=== PATIENT | male | born 1950 | race Caucasian/White ===

== ENCOUNTER 2016-05-07 08:34 | Inpatient (IN) | payer MEDICARE, OTHER ==
[~2016-05-07] VITALS: Ht 157.4 cm; Wt 108.5 kg
[2016-05-07] VITALS (12 sets, daily range): BP systolic 122–213; BP diastolic 76–137
--- NOTE | ~2016-05-07 | PR ---
[place], [place] PROGRESS NOTE NAME: SHAD CHISHOLM UNIT #: [id number] ROOM: 521 DOCTOR: KLARISSA LORENZO MD BIRTHDATE: [birth year] DOS: 05/11/2016 PULMONARY PROGRESS NOTE SUBJECTIVE: He has been transferred to medical floor at this time, sitting on the chair. He was not requiring any oxygen supplementation. NG tube has been previously removed. The patient stated he had been ordered clear liquids that patient to be used today. He denies any coughing or any sputum expectoration. OBJECTIVE: VITAL SIGNS: For the patient, which has been recorded showed the temperature noted normal, respiratory rate 20, heart rate of 85, blood pressure 144/70. The pulse oxygen saturation for the patient recorded on 2 liters nasal cannula previously as 94% saturation. HEENT: Examination shows head was atraumatic. Eyes nonicterus. NECK: Supple. CARDIOVASCULAR SYSTEM: S1, S2 is audible. LUNGS: For the patient was noted without any wheezing or crackles. Breaths are noted decreased in the lower portion of the lungs. ABDOMEN: Soft, status post surgery. Bowel sounds present. LABORATORY DATA: CBC of the patient, WBC count 3.3, hemoglobin 11.9, hematocrit 35.7, platelet count was normal. The BMP of the patient noted normal BUN and creatinine. IMPRESSION: 1. The patient with acute hypoxic respiratory failure, which has been improving progressively with basilar areas of atelectasis. 2. Abdominal ventral hernia of the patient incarceration, status post repair. 3. Chronic obesity. PLAN OF TREATMENT: The patient has been responding to treatment progressively with the improvement in the oxygenation. He was advised about continuing current treatment with bronchodilators, incentive spirometry, and flutter valve. Other usual care. Supportive therapy, plan of management and treatments. [place], [place] PROGRESS NOTE NAME: SHAD CHISHOLM UNIT #: [id number] ROOM: 521 DOCTOR: KLARISSA LORENZO MD BIRTHDATE: [birth year] KLARISSA ARBOLEDA MD CM:PNTRANS [phone] KLARISSA BILL MD 05/12/16 1219 interface
--- NOTE | ~2016-05-07 | PR ---
[place], [place] PROGRESS NOTE NAME: SHAD CHISHOLM UNIT #: [id number] ROOM: 521 DOCTOR: NKECHI BILL MD,KLARISSA BIRTHDATE: [birth year] DOS: 05/14/2016 SUBJECTIVE: The patient seen and examined on 05/14/2016. He has been currently ambulating, being assessed, possibly oxygen supplementation needed at home settings. He denies any symptoms of chest pain or any abdominal pain. OBJECTIVE: VITAL SIGNS: For the patient, which has been recorded shows the temperature recorded as normal, respiratory rate of 20, heart rate 79, blood pressure 146/64. HEENT: No new change. CARDIOVASCULAR: S1, S2 audible. LUNGS: Noted without any wheezing or crackles. ABDOMEN: Soft, nontender. IMPRESSION: 1. The patient with stable respiratory status was noted at the present time with the resolution of acute hypoxic respiratory failure. 2. Chronic obesity. 3. Status post surgery for the incarcerated ventral hernia. PLAN OF TREATMENT: No changes in the plan and management at this time. The patient does not qualify for oxygen supplementation. The walk test for the patient was done, which was noted without any oxygen desaturation. KLARISSA ARBOLEDA MD CM:PNTRANS [phone] KLARISSA BILL MD 05/15/16 0055 interface
--- NOTE | ~2016-05-07 | PR ---
[place], [place] PROGRESS NOTE NAME: SHAD CHISHOLM UNIT #: [id number] ROOM: 521 DOCTOR: NKECHI BILL MD,KLARISSA BIRTHDATE: [birth year] DOS: 05/12/2016 PULMONARY PROGRESS NOTE SUBJECTIVE: He has been noted comfortable at this time. The patient has been ambulating, continued on clear liquids. to further advance the diet by the surgery staff. He has been currently getting oxygen supplementation 2 L nasal cannula. OBJECTIVE: VITAL SIGNS: Shows a normal temperature, respiratory rate 20, heart rate of 83. The blood pressure 128/70. Pulse oxygen saturation of the patient was noted on 2 L was 95% saturation. HEENT: Examination shows chronic obesity. NECK: Supple. CARDIOVASCULAR SYSTEM: S1, S2 audible. LUNGS: Noted without any wheezing or crackles. ABDOMEN: Soft, nontender. LABORATORY DATA: BMP of the patient, potassium 3.4, otherwise normal. CBC of the patient, mild anemia, otherwise normal CBC. IMPRESSION: 1. Stable respiratory status with resolving acute hypoxia and respiratory failure. 2. Area of basilar atelectasis post-surgery, which is clinically improving. PLAN OF TREATMENT: No change in plan of management at this time. Continue current therapy and plan of management and postsurgical care. KLARISSA ARBOLEDA MD CM:PNTRANS [id number] KLARISSA BILL MD 05/13/16 0426 interface
--- NOTE | ~2016-05-07 | O ---
[place], [place] OPERATIVE NOTE [id number] UNIT #: [id number] ROOM: [place] [address] DOCTOR: QUINTIN REAVES MD BIRTHDATE: [birth year] DOS: 05/07/2016 PREOPERATIVE DIAGNOSIS: Incarcerated ventral hernia. POSTOPERATIVE DIAGNOSIS: Incarcerated ventral hernia. PROCEDURE: Repair of incarcerated ventral hernia. SURGEON: Quintin Reaves MD [employer] EVIDENCE TECHNICIAN: MS3. ANESTHESIA: General with endotracheal intubation. INDICATIONS: This is a 65-year-old gentleman who came into the Emergency Room with an incarcerated ventral hernia. It was decided to take the patient to the operating room for the above-mentioned procedure. The procedure and its complications explained to him and his in detail preoperatively. Complications that were discussed included but were not limited to bleeding, infection, hematoma/seroma/abscess formation, prolonged postoperative pain, damage to underlying vital structures and recurrence agreed to proceed. DESCRIPTION OF PROCEDURE: After identifying the patient, the patient was brought to the operating suite and laid in the supine position. After induction of general anesthesia, timeout procedure was called, and an NG-tube was placed by the anesthesia team. The parts were then painted and draped in the usual sterile fashion. The previous midline incision that was made for the previous 2 hernia repairs was used to enter the abdomen. The scar was excised in its entirety and the subcutaneous tissue was incised very carefully. The hernial sac was identified and from the surrounding scar tissue and it was opened. Multiple adhesions between the omentum and the edges of the scar as well as the small and large bowel were identified. These were meticulously taken down on all directions. A transition point in the region of the cecum/proximal colon was found and this was treated away from the hernial sac with blunt and sharp dissection. After complete mobilization of the bowel was obtained, the edges of the fascia were freshened, and at this point, it was decided to proceed with primary closure. This was done after two least incisions were made on the fascia on either side. The closure was first done with the help of #2 Ethilon in an interrupted fashion and then this was further reinforced with the help of looped PDS in a running fashion. Thereafter, hemostasis was achieved with the help of electrocautery and a 15-[place] round PRIYA was placed in the subcutaneous tissue. Thereafter, the edges of the skin were approximated with the help of gaviota and a dressing was placed. The abdominal binder was placed as well. The patient tolerated the procedure well. He was taken to the recovery room in a stable fashion intubated, on venilator . Dr. Quintin Reaves, the attending surgeon, was present throughout the operating case. Blood loss was approximately 200 mL. Specimens that were sent for histopathological diagnosis included omentum and mesh from the previous surgery. [place], [place] OPERATIVE NOTE NAME: SHAD CHISHOLM UNIT #: [id number] ROOM: [place] [address] DOCTOR: QUINTIN REAVES MD BIRTHDATE: [birth year] Quintin Reaves MD CM:OPRECORD:OPERATIVE NOTE [id number] QUINTIN REAVES MD 05/09/16 0617 interface
--- NOTE | ~2016-05-07 | PR ---
[place], [place] PROGRESS NOTE NAME: SHAD CHISHOLM UNIT #: [id number] ROOM: 521 DOCTOR: KLARISSA LORENZO MD BIRTHDATE: [birth year] DOS: 05/10/2016 PULMONARY FOLLOWUP NOTE SUBJECTIVE: He was seen and examined on 05/10/2016 in the Intensive Care Unit. He had been comfortably sitting on the chair. The NG tube has been removed. The patient continues to use the ice chips. He has not been noted with any abdominal pain, shortness of breath, coughing or sputum expectoration. OBJECTIVE: VITAL SIGNS: For the patient, which has been recorded showed the temperature noted as normal, respiratory rate 20, heart rate 93, blood pressure 162/89. HEENT: Examination shows head was atraumatic. Eyes nonicterus. NECK: Supple. CARDIOVASCULAR: S1, S2 audible. LUNGS: Noted without any wheezing or crackles at the present time. ABDOMEN: Soft, status post surgery. EXTREMITIES: Showed no edema, clubbing or cyanosis. LABORATORY DATA: CBC of the patient that was done this morning showed WBC count 3.4, hemoglobin 13.1, hematocrit 39.7 with normal platelet count. The BMP of the patient shows glucose 102, BUN and creatinine were normal, potassium 3.1. Chest x-ray of the patient that was done, 2-view was noted with basilar areas of atelectasis without any acute abnormalities. IMPRESSION: 1. The patient with improving acute hypoxic respiratory failure with basilar area of atelectasis because of some mucus impaction of the airways. 2. Status post abdominal ventral hernia repair with incarceration. 3. Obesity. PLAN OF TREATMENT: Continue incentive spirometry, use of flutter valve and other conservative treatment. Continue all previous medical therapy, plan of management and other care and therapies. Supportive care. All his usual medical management as in progress. [place], [place] PROGRESS NOTE NAME: SHAD CHISHOLM UNIT #: [id number] ROOM: 521 DOCTOR: KLARISSA LORENZO MD BIRTHDATE: [birth year] KLARISSA ARBOLEDA MD CM:PNTRANS [phone] KLARISSA BILL MD 05/11/16 0152 interface
--- NOTE | ~2016-05-07 | PR ---
[place], [place] PROGRESS NOTE NAME: SHAD CHISHOLM UNIT #: [id number] ROOM: [place] [address] DOCTOR: KLARISSA LORENZO MD BIRTHDATE: [birth year] DOS: 05/09/2016 PULMONARY FOLLOWUP SUBJECTIVE: The patient was seen and examined on 05/09/2016. He had been successfully liberated from mechanical ventilator yesterday. This morning seen sitting on the chair. The NG tube remains in place which has been placed to the suction. The patient has been noted without any distress. The oxygen supplementation at this time used by the patient with the nasal cannula, saturating very well. He has not been noted with any hemodynamic instability. OBJECTIVE: VITAL SIGNS: For the patient, which have been recorded showed normal temperature, respiratory rate 20, heart rate of 82, blood pressure 168/88. The pulse oxygen saturation of the patient recorded on 4 L nasal cannula 95% saturation. HEENT: Showed no new change. NECK: Supple. CARDIOVASCULAR SYSTEM: S1, S2 is audible. LUNGS: Noted with scattered occasional crackles, no wheezing. ABDOMEN: Soft, nontender. Status post surgery. LABORATORY DATA: CBC today: WBC count 2.6, otherwise CBC grossly normal. The BMP for the patient was noted as potassium 3.0, otherwise normal. IMPRESSION: 1. The patient with acute postoperative hypoxic respiratory failure with gradual improvement. The patient continues with respiratory status. Oxygen requirement has been progressively decreased. 2. Status post ventral hernia repair and incarceration. PLAN OF TREATMENT: Continue the patient's current plan of management. The patient is improving. A continuation of incentive spirometry, oxygen supplementation, bronchodilators, used for this patient help clear up secretions. Chest x-ray of the patient to be obtained tomorrow morning to assess the underlying pulmonary status. Usual care. Other supportive plan of therapy. [place], [place] PROGRESS NOTE NAME: SHAD CHISHOLM UNIT #: [id number] ROOM: [place] [address] DOCTOR: KLARISSA LORENZO MD BIRTHDATE: [birth year] KLARISSA ARBOLEDA MD CM:PNTRANS [phone] KLARISSA BILL MD 05/10/16 1436 interface
--- NOTE | ~2016-05-07 | PR ---
[place], [place] PROGRESS NOTE NAME: SHAD CHISHOLM UNIT #: [id number] ROOM: 521 DOCTOR: NKECHI BILL MD,KLARISSA BIRTHDATE: [birth year] DOS: 05/15/2016 PULMONARY PROGRESS NOTE SUBJECTIVE: He was seen and examined on 05/15/2016. He has been ambulating, does not require any oxygen supplementation. Denies symptoms of chest pain, coughing, sputum expectoration. OBJECTIVE: VITAL SIGNS: Normal temperature, respiratory rate 20, heart rate 75, blood pressure 151/76. Intake is 1200, the output was not recorded. Pulse oxygen saturation on room air 98% saturation. HEENT: Examination shows chronic obesity. NECK: Supple. CARDIOVASCULAR SYSTEM: S1, S2 is audible. LUNGS: For the patient noted without any wheeze or crackles at present time. ABDOMEN: Soft, obese, nontender. IMPRESSION: 1. Resolved acute hypoxic respiratory failure, improving basilar area of atelectasis postoperatively. 2. Status post incarcerated ventral hernia repair. PLAN OF TREATMENT: No changes from the pulmonary standpoint, the patient could be continued on current plan of therapy as in progress without any changes. Continue usual medical management, plan of care, and supportive care. Usual treatments. KLARISSA ARBOLEDA MD CM:PNTRANS [phone] KLARISSA BILL MD 05/16/16 0047 interface
--- NOTE | ~2016-05-07 | PR ---
[place], [place] PROGRESS NOTE [facility]: [id number] UNIT #: [id number] ROOM: 521 DOCTOR: NKECHI BILL MD,KLARISSA BIRTHDATE: [birth year] DOS: 05/13/2016 SUBJECTIVE: The patient was seen and examined on 05/13/2016. He has been started on solid diet, which seemed to be tolerated in general. The patient denies any symptoms of shortness of breath, ambulating intermittently. There were no symptoms of chest pain. OBJECTIVE: VITAL SIGNS: Normal temperature, respiratory rate 18, heart rate 86, blood pressure 146/90. The pulse oxygen saturation on room air 94% saturation. HEENT: Examination shows. NECK: Supple. CARDIOVASCULAR: S1, S2 audible. LUNGS: Noted without any wheezing or crackles. ABDOMEN: Soft, obese, status post surgery. Bowel sounds present. IMPRESSION: Stable respiratory status or acute hypoxic respiratory failure, a small area of atelectasis in the left lower lobe. PLAN OF TREATMENT: No changes in the plan of management, continuation of current therapy, plan of management as in progress without any changes. Continue usual care. Supportive care, plan of management. Usual care. KLARISSA ARBOLEDA MD CM:PNTRANS [phone] KLARISSA BILL MD 05/14/16 0349 interface
--- NOTE | ~2016-05-07 | CON ---
[place], [place] REPORT OF CONSULTATION NAME: SHAD CHISHOLM UNIT #: [id number] ROOM: [place] [address] DOCTOR: KLARISSA LORENZO MD BIRTHDATE: [birth year] DOS: 05/08/2016 Consultation was done for the patient for the assessment of acute respiratory failure with current mechanical ventilatory support. HISTORY OF PRESENT ILLNESS: This is a 65-year-old white male who has been admitted to the hospital. The patient presented to the Emergency Room and admitted on 05/07/2016. The patient unable to give me any history. All the history has been obtained from the review of the current consultation documentation by the other physicians records. He has been noted with past history of ventral abdominal hernias in the past with history of rheumatoid arthritis and essential hypertension. The patient presented to the hospital. The patient developed acute pain, which is described burning initially in the mid abdomen, later on noted burning and generalization of the pain. Pain has been present for the patient about one month ago, subsided for few days and then reoccurred the pain. The pain has been noted progressive worsening. The pain was later associated with several episodes of the emesis over the weekend. The patient has been noted symptoms of nausea. There were no symptoms of hematemesis, melena, or hematochezia described. The patient was taking the clear liquids. He was assessed in the Emergency Room later and diagnosis of incarcerated ventral abdominal hernia was established. The patient underwent surgical intervention for the patient for removal of the mesh from the abdomen as well as the correction of the incarcerated abdominal hernia. The patient has been currently noted on mechanical ventilation. He has been noted to be awake and alert. The oxygen requirement of the patient has been decreased. The patient noted 30% oxygen supplementation. REVIEW OF SYSTEMS: Could not be completed since the patient is intubated and noted on mechanical ventilation. PAST MEDICAL HISTORY: Was described as; 1. Hypertension . 2. Gout. 3. BPH. 4. Abdominal ventral hernia. 5. Chronic obesity. 6. History of rheumatoid arthritis. PAST SURGICAL HISTORY: Was described as; 1. History of right hand. 2. Past abdominal ventral hernia repair. 3. Surgery for the fingers attached for the patient after an accident of the hand. SOCIAL HISTORY: The patient has been noted past tobacco use, unknown quantity and duration. There was no history of illicit drug use. History of social alcohol use was noted. FAMILY HISTORY: The patient was described as father at 80 years old, complication of congestive heart failure. Mother at the age of 80 years [place], [place] REPORT OF CONSULTATION NAME: SHAD CHISHOLM UNIT #: [id number] ROOM: [place] [address] DOCTOR: KLARISSA LORENZO MD BIRTHDATE: [birth year] old from an old age. HOME MEDICATIONS: Used by the patient reported as use of Norvasc, aspirin, vitamin D, multivitamin, hydrochlorothiazide and terazosin. DRUG ALLERGIES: Noted with no known drug allergies. PHYSICAL EXAMINATION: GENERAL: A 65-year-old white male who has been currently noted to be awake on the mechanical ventilator at this time intubated orally. Height of the patient noted 5 feet 2 inches, weight of 225 pounds, BMI 41.2. VITAL SIGNS: For the patient reported as a normal temperature since the last 24 hours. Respiratory rate between 12-17, heart rate highest of 139 and lowest 85. The blood pressure noted 230/137 yesterday and current blood pressure noted 144/75. Pulse oxygen saturation recorded 97% on 30% oxygen. Oxygen saturation 89% for this patient on admission. Intake for the patient noted as 1880 mL, output was 1150 mL that include the output of the drain from the abdomen 105 mL, 20 mL of NG tube, output at 800 mL of urine. HEENT: Otherwise noted, head was atraumatic. EYES: Nonicterus. NECK: Supple. CARDIOVASCULAR SYSTEM: S1, S2 audible. LUNGS: Shows [id number] decreased breath sounds were noted without any wheezing or crackles at this time. ABDOMEN: Abdomen site of surgery soft with current obesity. CENTRAL NERVOUS SYSTEM: The patient unable to assess, but the patient had been noted movement of the upper and lower extremities at his own will. SKIN: Showed no lesions or rashes. MUSCULOSKELETAL SYMPTOMS: The patient does not show any obvious deformities of the muscles or skeleton. LABORATORY DATA: CBC for this patient that was done yesterday of the patient on admission with a WBC count of 10.1. Hemoglobin, hematocrit, platelet count were normal. Lactic acid 2.3 on admission, later on followup was 2.0 from yesterday. CMP of the patient of 05/07/2016, on admission noted normal except potassium 3.0. Arterial blood gas, which were done for the patient post-surgery pH of 7.34, pCO2 of 51.8, pO2 of 101 on 60% oxygen. Arterial blood gas this morning, pH of 7.40, pCO2 of 43, pO2 of 76.6 with correction after modification of mechanical ventilation, which was done last night. The lab data review of radiology. CT scan of the abdomen and pelvis that was done on 05/07/2016, in the Emergency Room were noted small bowel obstruction secondary to incarcerated anterior abdominal wall hernia. There were no wall thickening described. Chest x-ray of the patient that was done post-intubation of the patient shows endotracheal tube in place without any acute pulmonary infiltration or other abnormalities. IMPRESSION: 1. The patient with acute hypoxic respiratory failure with current surgery, postoperative hypoxic respiratory failure secondary to non-thoracic surgery. 2. The patient with chronic morbid obesity with the suspicion of obstructive [place], [place] REPORT OF CONSULTATION NAME: SHAD CHISHOLM UNIT #: [id number] ROOM: [place] [address] DOCTOR: NKECHI BILL MD,[facility] BIRTHDATE: [birth year] sleep apnea disorder. 3. Past history of tobacco use with suspicion of chronic obstructive pulmonary disease. There was no formal diagnosis made. At this time, the patient does not have any acute exacerbation. 4. Hypercapnia, multifactorial secondary to medication including use of anesthetic agents as well as central depression of the patient with use of the narcotic medication for postoperative treatment as well. 5. Status post repair of the incarcerated abdominal ventral hernia for this patient successfully for this current hospitalization as a removal of the mesh for this patient. PLAN OF TREATMENT: Sedation will be completely discontinued at this time. The patient has been noted to gradually improve the wakefulness, findings to be noted fully awake and alert. He will be started on CPAP of 5 and pressure support of 10. After discontinuation of the Diprivan few minutes later, the patient was only getting a tidal volume of about 200 to 250 mL with a respiratory rate of 30. The BiPAP for this patient will be started in the next 30 minutes to 1 hour and that will be continued if tolerated for possibility of consideration of liberation of mechanical ventilation after that. Bronchodilator will be given as needed for the clearing up of secretions from the endobronchial tree. Other supportive therapy, plan of management. Continue pain management. Supportive care therapy, plan of management. Surgical followup the patient will be continued, the patient with current surgery for the correction of the ventral hernia repair. Usual treatment other than the plan of care. Total time of Pulmonary critical care evaluation and management was 35 minutes. KLARISSA ARBOLEDA MD CM:CONSTR:REPORT OF CONSULTATION 1224 05/09/16 0355 interface
[2016-05-07 09:56] LABS: BASO % 0.2 % (0.0-1.0); EOS % 0.1 % (1.0-4.0); HEMATOCRIT 44.7 % (42.0-52.0); HEMOGLOBIN 15.7 g/dl (14.0-18.0); LYMPH # 0.8 10*3/uL (1.3-4.4); LYMPH % 7.5 % (27.0-41.0); MEAN CELL VOLUME 86.6 fl (80.0-94.0); MEAN CORPUSCULAR HGB 30.4 pg (27.0-31.0); MEAN CORPUSCULAR HGB CONC 35.1 g/dl (33.0-37.0); MEAN PLATELET VOLUME 9.8 fl (9.6-12.3); MONO # 0.6 10*3/uL (0.1-1.0); MONO % 6.4 % (3.0-9.0); NEUT # 8.6 10*3/uL (2.3-7.9); NEUT % 85.5 % (47.0-73.0); PLATELET COUNT AUTOMATED 278 10*3/uL (130-400); RED BLOOD COUNT 5.16 10*6/uL (4.50-5.90); RED CELL DISTRI WIDTH 11.8 % (0-14.5); WHITE BLOOD COUNT 10.1 10*3/uL (4.8-10.8)
[2016-05-07 10:11] LABS: ALBUMIN 3.5 gm/dl (3.1-4.5); ALKALINE PHOSPHATASE 77 U/L (45-117); BUN 19 mg/dl (7-24); CARBON DIOXIDE 25 mmol/L (21-32); CHLORIDE 101 mmol/L (98-107); EST GLOM FILT AFRICAN AMERICAN > 60 ml/min; GLUCOSE 116 mg/dL (65-99); SGOT/AST 19 IU/L (3-35); SGPT/ALT 19 U/L (12-78); SODIUM 137 mmol/L (136-145); TOTAL PROTEIN 7.7 gm/dL (6.4-8.2)
[2016-05-07] MEDS ORDERED: HYDROCHLOROTHIA25 M1 PO (10:14)
[2016-05-07] MEDS ORDERED: TERAZOSIN HCL5 M1 PO (10:14)
[2016-05-07] MEDS ORDERED: VITAMIN D-32000 UNIT PO (10:15)
[2016-05-07] MEDS ORDERED: ASPIRIN CHEWABL81 MG PO (10:15)
[2016-05-07] MEDS ORDERED: ONE-A-DAY VIT200 MC2 PO (10:15)
[2016-05-07] MEDS ORDERED: AMLODIPINE BESYL5 MG PO (10:16)
[2016-05-07 11:44] LABS: BILIRUBIN NEGATIVE (NEGATIVE); BLOOD NEGATIVE (NEGATIVE); CLARITY CLEAR (CLEAR); COLOR YELLOW (YELLOW); GLUCOSE NEGATIVE (NEGATIVE); KETONE NEGATIVE (NEGATIVE); LEUKO ESTERASE NEGATIVE (NEGATIVE); NITRITE NEGATIVE (NEGATIVE); PH 7.5 (5.0-9.0); PROTEIN TRACE (NEGATIVE); SPECIFIC GRAVITY <= 1.005 (1.005-1.030)
[2016-05-07 11:49] LABS: WBC 0-2 wbc/hpf (0-5)
[2016-05-07 11:50] LABS: RBC 0-2 rbc/hpf (0-2); URINE REFLEX COMMENT NO (NO)
[2016-05-07 11:53] LABS: LA>2 REFLEX 2 HR DRAW NOW
[2016-05-07 21:42] LABS: ABG BASE EXCESS 1.7 mmol/L (-2.0-2.0); ABG CO2 CONTENT 29.4 mmol/L (23-27); ABG HCO3 27.8 mmol/l (22-26); ABG TEMPERATURE 98.7 F (98.0-99.0); ARTERIAL BLOOD GAS PH 7.349 (7.35-7.45)
[2016-05-08] VITALS (10 sets, daily range): BP systolic 120–170; BP diastolic 72–92
[2016-05-08 05:20] LABS: ABG BASE EXCESS 2.1 mmol/L (-2.0-2.0); ABG CO2 CONTENT 28.1 mmol/L (23-27); ABG HCO3 26.7 mmol/l (22-26); ABG TEMPERATURE 98.5 F (98.0-99.0); ARTERIAL BLOOD GAS PH 7.404 (7.35-7.45); ARTERIAL BLOOD GAS PO2 76.7 mmHg (80-90)
[2016-05-08 06:20] LABS: BASO % 0.3 % (0.0-1.0); EOS # 0.1 10*3/uL (0.0-0.4); EOS % 1.2 % (1.0-4.0); LYMPH # 0.6 10*3/uL (1.3-4.4); LYMPH % 7.7 % (27.0-41.0); MEAN CORPUSCULAR HGB 30.5 pg (27.0-31.0); MEAN CORPUSCULAR HGB CONC 33.4 g/dl (33.0-37.0); MONO # 0.7 10*3/uL (0.1-1.0); MONO % 9.4 % (3.0-9.0); NEUT # 6.2 10*3/uL (2.3-7.9); NEUT % 81.1 % (47.0-73.0); PLATELET COUNT AUTOMATED 208 10*3/uL (130-400); RED BLOOD COUNT 4.49 10*6/uL (4.50-5.90); RED CELL DISTRI WIDTH 12.6 % (0-14.5); WHITE BLOOD COUNT 7.7 10*3/uL (4.8-10.8)
[2016-05-08 06:29] LABS: HEMOGLOBIN 13.7 g/dl (14.0-18.0); MEAN CELL VOLUME 91.3 fl (80.0-94.0)
[2016-05-08 06:51] LABS: ALBUMIN 2.6 gm/dl (3.1-4.5); ALKALINE PHOSPHATASE 57 U/L (45-117); BILIRUBIN, TOTAL 1.1 mg/dl (0.2-1.0); BUN 18 mg/dl (7-24); CARBON DIOXIDE 27 mmol/L (21-32); CHLORIDE 107 mmol/L (98-107); CHOLESTEROL 130 mg/dL (<200); EST GLOM FILT AFRICAN AMERICAN > 60 ml/min; FREE T4 1.61 ng/dl (0.76-1.46); GLUCOSE 109 mg/dL (65-99); HDL CHOLESTEROL 37 mg/dl (40-60); LDL CHOLESTEROL 64 mg/dL (9-159); MAGNESIUM 2.1 mg/dL (1.5-2.1); POTASSIUM 3.5 mmol/L (3.5-5.1); SGOT/AST 20 IU/L (3-35); SGPT/ALT 16 U/L (12-78); SODIUM 143 mmol/L (136-145); THYROID STIM HORMONE (HS) 0.487 uIU/ml (0.358-4.75); TOTAL PROTEIN 5.9 gm/dL (6.4-8.2); TRIGLYCERIDES 144 mg/dl (<150); VLDL CHOLESTEROL 29 mg/dL (6-40)
[2016-05-08 06:58] LABS: HEMOGLOBIN A1c 5.2 % (4.8-5.6)
[2016-05-08 07:42] LABS: FOLIC ACID 11.87 ng/mL (>5.38)
[2016-05-08 12:00] LABS: ABG BASE EXCESS 1.8 mmol/L (-2.0-2.0); ABG CO2 CONTENT 27.7 mmol/L (23-27); ABG HCO3 26.4 mmol/l (22-26); ABG TEMPERATURE 99.2 F (98.0-99.0); ARTERIAL BLOOD GAS PH 7.4 (7.35-7.45); ARTERIAL BLOOD GAS PO2 74.2 mmHg (80-90)
[2016-05-09] VITALS (7 sets, daily range): BP systolic 152–181; BP diastolic 63–93
[2016-05-09 06:04] LABS: HEMATOCRIT 41.8 % (42.0-52.0); HEMOGLOBIN 13.8 g/dl (14.0-18.0); MEAN CELL VOLUME 91.3 fl (80.0-94.0); MEAN CORPUSCULAR HGB 30.1 pg (27.0-31.0); MEAN PLATELET VOLUME 9.9 fl (9.6-12.3); PLATELET COUNT AUTOMATED 206 10*3/uL (130-400); RED BLOOD COUNT 4.58 10*6/uL (4.50-5.90); RED CELL DISTRI WIDTH 12.5 % (0-14.5); WHITE BLOOD COUNT 2.6 10*3/uL (4.8-10.8)
[2016-05-09 06:26] LABS: BUN 19 mg/dl (7-24); CARBON DIOXIDE 29 mmol/L (21-32); CHLORIDE 106 mmol/L (98-107); EST GLOM FILT AFRICAN AMERICAN > 60 ml/min; GLUCOSE 105 mg/dL (65-99); POTASSIUM 3.3 mmol/L (3.5-5.1); SODIUM 144 mmol/L (136-145)
[2016-05-09 06:51] LABS: BASOPHILS 1 % (0-1); LYMPHOCYTE # 0.5 10*3/uL (1.3-4.4); MONOCYTE # 0.4 10*3/uL (0.1-1.0); NEUTROPHIL # 1.7 10*3/uL (2.3-7.9); NEUTROPHILS 64 % (47-73); PLATELET SUFFICIENCY NORMAL (NORMAL); TOTAL CELLS COUNTED 100 #CELLS
[2016-05-10] VITALS: BP 123/68
[2016-05-10 04:00] VITALS: BP 166/73
[2016-05-10 06:10] LABS: HEMATOCRIT 39.7 % (42.0-52.0); HEMOGLOBIN 13.1 g/dl (14.0-18.0); MEAN CELL VOLUME 91.1 fl (80.0-94.0); MEAN PLATELET VOLUME 9.7 fl (9.6-12.3); PLATELET COUNT AUTOMATED 212 10*3/uL (130-400); RED BLOOD COUNT 4.36 10*6/uL (4.50-5.90); RED CELL DISTRI WIDTH 12.4 % (0-14.5); WHITE BLOOD COUNT 3.4 10*3/uL (4.8-10.8)
[2016-05-10 06:18] LABS: BUN 21 mg/dl (7-24); CARBON DIOXIDE 33 mmol/L (21-32); CHLORIDE 103 mmol/L (98-107); EST GLOM FILT AFRICAN AMERICAN > 60 ml/min; GLUCOSE 102 mg/dL (65-99); POTASSIUM 3.1 mmol/L (3.5-5.1); SODIUM 143 mmol/L (136-145)
[2016-05-10 07:27] LABS: EOSINOPHIL # 0.1 10*3/uL (0-0.4); EOSINOPHILS 2 % (1-4); LYMPHOCYTE # 0.6 10*3/uL (1.3-4.4); MONOCYTE # 0.4 10*3/uL (0.1-1.0); NEUTROPHIL # 2.4 10*3/uL (2.3-7.9); NEUTROPHILS 70 % (47-73); TOTAL CELLS COUNTED 100 #CELLS
[2016-05-10 07:28] LABS: PLATELET SUFFICIENCY NORMAL (NORMAL)
[2016-05-10 08:00] VITALS: BP 162/89
[2016-05-10 12:00] VITALS: BP 152/85
[2016-05-10 16:00] VITALS: BP 156/85
[2016-05-10 20:00] VITALS: BP 129/69
[2016-05-11] VITALS: BP 124/65
[2016-05-11 06:43] LABS: BASO % 0.6 % (0.0-1.0); EOS # 0.1 10*3/uL (0.0-0.4); EOS % 3.1 % (1.0-4.0); HEMATOCRIT 35.7 % (42.0-52.0); HEMOGLOBIN 11.9 g/dl (14.0-18.0); LYMPH # 0.7 10*3/uL (1.3-4.4); LYMPH % 19.9 % (27.0-41.0); MEAN CELL VOLUME 90.8 fl (80.0-94.0); MEAN CORPUSCULAR HGB 30.3 pg (27.0-31.0); MEAN CORPUSCULAR HGB CONC 33.3 g/dl (33.0-37.0); MEAN PLATELET VOLUME 9.6 fl (9.6-12.3); MONO # 0.6 10*3/uL (0.1-1.0); NEUT # 1.9 10*3/uL (2.3-7.9); NEUT % 57.1 % (47.0-73.0); PLATELET COUNT AUTOMATED 203 10*3/uL (130-400); RED BLOOD COUNT 3.93 10*6/uL (4.50-5.90); RED CELL DISTRI WIDTH 12.5 % (0-14.5); WHITE BLOOD COUNT 3.3 10*3/uL (4.8-10.8)
[2016-05-11 07:12] LABS: BUN 22 mg/dl (7-24); CARBON DIOXIDE 31 mmol/L (21-32); CHLORIDE 101 mmol/L (98-107); EST GLOM FILT AFRICAN AMERICAN > 60 ml/min; GLUCOSE 92 mg/dL (65-99); MAGNESIUM 2.3 mg/dL (1.5-2.1); PHOSPHOROUS 2.4 mg/dL (2.5-4.9); POTASSIUM 3.1 mmol/L (3.5-5.1); SODIUM 140 mmol/L (136-145)
[2016-05-11 08:00] VITALS: BP 144/70
[2016-05-11 12:00] VITALS: BP 145/78
[2016-05-11 16:00] VITALS: BP 154/80
[2016-05-11 20:00] VITALS: BP 129/81
[2016-05-12] VITALS: BP 121/83
[2016-05-12 06:47] LABS: BASO % 0.4 % (0.0-1.0); EOS # 0.2 10*3/uL (0.0-0.4); EOS % 3.7 % (1.0-4.0); HEMATOCRIT 35.8 % (42.0-52.0); HEMOGLOBIN 11.7 g/dl (14.0-18.0); LYMPH # 0.9 10*3/uL (1.3-4.4); LYMPH % 17.3 % (27.0-41.0); MEAN CELL VOLUME 91.3 fl (80.0-94.0); MEAN CORPUSCULAR HGB 29.8 pg (27.0-31.0); MEAN CORPUSCULAR HGB CONC 32.7 g/dl (33.0-37.0); MEAN PLATELET VOLUME 9.9 fl (9.6-12.3); MONO # 0.8 10*3/uL (0.1-1.0); MONO % 15.8 % (3.0-9.0); NEUT # 3.2 10*3/uL (2.3-7.9); NEUT % 62.2 % (47.0-73.0); PLATELET COUNT AUTOMATED 215 10*3/uL (130-400); RED BLOOD COUNT 3.92 10*6/uL (4.50-5.90); RED CELL DISTRI WIDTH 12.6 % (0-14.5); WHITE BLOOD COUNT 5.1 10*3/uL (4.8-10.8)
[2016-05-12 06:57] LABS: BUN 18 mg/dl (7-24); CARBON DIOXIDE 30 mmol/L (21-32); CHLORIDE 99 mmol/L (98-107); EST GLOM FILT AFRICAN AMERICAN > 60 ml/min; GLUCOSE 92 mg/dL (65-99); MAGNESIUM 1.9 mg/dL (1.5-2.1); PHOSPHOROUS 2.8 mg/dL (2.5-4.9); POTASSIUM 3.4 mmol/L (3.5-5.1); SODIUM 138 mmol/L (136-145)
[2016-05-12 08:00] VITALS: BP 146/80
[2016-05-12 12:00] VITALS: BP 128/70
[2016-05-12 16:00] VITALS: BP 158/70
[2016-05-12 20:00] VITALS: BP 156/88
[2016-05-13] VITALS: BP 127/67
[2016-05-13 08:00] VITALS: BP 146/90
[2016-05-13 09:59] LABS: ALBUMIN 2.5 gm/dl (3.1-4.5); ALKALINE PHOSPHATASE 53 U/L (45-117); BILIRUBIN, TOTAL 0.8 mg/dl (0.2-1.0); BUN 12 mg/dl (7-24); CARBON DIOXIDE 32 mmol/L (21-32); CHLORIDE 102 mmol/L (98-107); EST GLOM FILT AFRICAN AMERICAN > 60 ml/min; GLUCOSE 104 mg/dL (65-99); SGOT/AST 26 IU/L (3-35); SGPT/ALT 29 U/L (12-78); SODIUM 139 mmol/L (136-145); TOTAL PROTEIN 6.1 gm/dL (6.4-8.2)
[2016-05-13 12:00] VITALS: BP 156/88
[2016-05-13 16:00] VITALS: BP 135/93
[2016-05-13 20:00] VITALS: BP 162/85
[2016-05-14] VITALS: BP 144/61
[2016-05-14 06:49] LABS: BUN 10 mg/dl (7-24); CARBON DIOXIDE 30 mmol/L (21-32); CHLORIDE 101 mmol/L (98-107); EST GLOM FILT AFRICAN AMERICAN > 60 ml/min; GLUCOSE 112 mg/dL (65-99); SODIUM 140 mmol/L (136-145)
[2016-05-14 08:00] VITALS: BP 146/64
[2016-05-14 12:00] VITALS: BP 145/72
[2016-05-14 16:00] VITALS: BP 134/73
[2016-05-14 20:00] VITALS: BP 152/71
[2016-05-15] VITALS: BP 143/61
[2016-05-15 06:40] LABS: BASO % 0.5 % (0.0-1.0); EOS # 0.2 10*3/uL (0.0-0.4); EOS % 2.9 % (1.0-4.0); HEMATOCRIT 36.1 % (42.0-52.0); IG # 0.1 10*3/uL (0.0-0.1); LYMPH # 1.2 10*3/uL (1.3-4.4); MEAN CELL VOLUME 90.5 fl (80.0-94.0); MEAN CORPUSCULAR HGB 30.1 pg (27.0-31.0); MEAN CORPUSCULAR HGB CONC 33.2 g/dl (33.0-37.0); MEAN PLATELET VOLUME 9.9 fl (9.6-12.3); MONO # 0.6 10*3/uL (0.1-1.0); NEUT # 3.7 10*3/uL (2.3-7.9); NEUT % 64.2 % (47.0-73.0); PLATELET COUNT AUTOMATED 246 10*3/uL (130-400); RED BLOOD COUNT 3.99 10*6/uL (4.50-5.90); RED CELL DISTRI WIDTH 12.4 % (0-14.5); WHITE BLOOD COUNT 5.8 10*3/uL (4.8-10.8)
[2016-05-15 07:05] LABS: BUN 9 mg/dl (7-24); CARBON DIOXIDE 30 mmol/L (21-32); CHLORIDE 105 mmol/L (98-107); EST GLOM FILT AFRICAN AMERICAN > 60 ml/min; GLUCOSE 94 mg/dL (65-99); SODIUM 144 mmol/L (136-145)
[2016-05-15 07:07] LABS: POTASSIUM 4.4 mmol/L (3.5-5.1)
[2016-05-15 08:00] VITALS: BP 151/76
[2016-05-15 12:00] VITALS: BP 151/73
[2016-05-15] MEDS ORDERED: NORVASC10 MG PO (14:15)
[2016-05-15] MEDS ORDERED: LISINOPRIL5 MG PO (14:17)
[2016-05-15] MEDS ORDERED: KLOR-CON M2020 ME1 PO (14:17)
[2016-05-15] MEDS ORDERED: B12,B-12,B 12500 MC1 PO (14:21)
== END 2016-05-15 15:00 | disposition home or self-care (01) | DRG 353 ==
LOC: ED 08:34 → ICCU 12:45 → EDHOLD 12:45 → 4E 13:05 → ICCU 18:48 → 5E 05-10 16:45
PROVIDERS: Family Medicine; Hospitalist; Internal Medicine; Internal Medicine Critical Care Medicine; Nurse Practitioner Family
PROC: 0WQF0ZZ Repair Abdominal Wall, Open Approach (ICD-10-PCS; principal; 2016-05-07)
PROC: 3E0M05Z Introduction of Adhesion Barrier into Peritoneal Cavity, Open Approach (ICD-10-PCS; principal; 2016-05-07)
PROC: 5A1945Z Respiratory Ventilation, 24-96 Consecutive Hours (ICD-10-PCS; principal; 2016-05-07)
DX: K43.6 Other and unspecified ventral hernia with obstruction, without gangrene (principal); E43 Unspecified severe protein-calorie malnutrition; J96.01 Acute respiratory failure with hypoxia; E87.2 Acidosis; R65.10 Systemic inflammatory response syndrome (SIRS) of non-infectious origin without acute organ dysfunction; Z68.41 Body mass index [BMI] 40.0-44.9, adult; J98.11 Atelectasis; N40.0 Benign prostatic hyperplasia without lower urinary tract symptoms; M06.9 Rheumatoid arthritis, unspecified; M1A.9XX0 Chronic gout, unspecified, without tophus (tophi); I10 Essential (primary) hypertension; E87.6 Hypokalemia; R73.9 Hyperglycemia, unspecified; K46.0 Unspecified abdominal hernia with obstruction, without gangrene; D72.810 Lymphocytopenia; E66.9 Obesity, unspecified; K43.9 Ventral hernia without obstruction or gangrene; E86.0 Dehydration; D64.9 Anemia, unspecified; E53.8 Deficiency of other specified B group vitamins; G47.33 Obstructive sleep apnea (adult) (pediatric); Z87.891 Personal history of nicotine dependence; Z79.899 Other long term (current) drug therapy; Z79.82 Long term (current) use of aspirin; Z98.890 Other specified postprocedural states; Z82.49 Family history of ischemic heart disease and other diseases of the circulatory system

== ENCOUNTER → 2019-05-08 | Outpatient (CLI) | payer OTHER ==
[~2019-05-08] MED LIST: AMLODIPINE BESYL5 MG PO; ASPIRIN CHEWABL81 MG PO; B12,B-12,B 12500 MC1 PO; HYDROCHLOROTHIA25 M1 PO; KLOR-CON M2020 ME1 PO; LISINOPRIL5 MG PO; NORCO 10-325 T1 EACH PO; NORVASC10 MG PO; ONE-A-DAY VIT200 MC2 PO; TERAZOSIN HCL5 M1 PO; VITAMIN D-32000 UNIT PO; ZOFRAN ODT4 MG SL
== END | disposition home or self-care (01) ==
LOC: US 11:30
DX: N49.2 Inflammatory disorders of scrotum (principal)

== ENCOUNTER → 2019-06-17 | Outpatient (CLI) | payer OTHER ==
[2019-06-17 11:45] LABS: BASO % 0.5 % (0.0-1.0); EOS # 0.1 10*3/uL (0.0-0.4); EOS % 0.9 % (1.0-4.0); HEMATOCRIT 44.5 % (42.0-52.0); HEMOGLOBIN 14.7 g/dl (14.0-18.0); LYMPH % 11.7 % (27.0-41.0); MEAN CELL VOLUME 94.1 fl (80.0-94.0); MEAN CORPUSCULAR HGB 31.1 pg (27.0-31.0); MONO # 0.5 10*3/uL (0.1-1.0); MONO % 6.1 % (3.0-9.0); NEUT % 80.1 % (47.0-73.0); PLATELET COUNT AUTOMATED 273 10*3/uL (130-400); RED BLOOD COUNT 4.73 10*6/uL (4.50-5.90); RED CELL DISTRI WIDTH 13.2 % (0-14.5); WHITE BLOOD COUNT 8.7 10*3/uL (4.8-10.8)
[2019-06-17 12:10] LABS: ALBUMIN 3.5 gm/dl (3.1-4.5); BUN 15 mg/dl (7-24); CHLORIDE 102 mmol/L (98-107); SGOT/AST 19 IU/L (3-35); SGPT/ALT 29 U/L (12-78); SODIUM 136 mmol/L (136-145)
[2019-06-17 12:14] LABS: ALKALINE PHOSPHATASE 85 U/L (45-117); CREATININE 1.18 mg/dL (0.70-1.30); TOTAL PROTEIN 7.6 gm/dL (6.4-8.2)
== END | disposition home or self-care (01) ==
LOC: LAB 10:46
PROVIDERS: Nurse Practitioner Family
DX: D40.0 Neoplasm of uncertain behavior of prostate (principal); R53.83 Other fatigue

== ENCOUNTER → 2019-06-26 | Outpatient (CLI) | payer OTHER ==
[2019-06-26 10:15] LABS: THYROID STIM HORMONE (HS) 0.987 uIU/ml (0.358-4.75); THYROXINE (T4) TOTAL 10.3 ug/dl (4.5-12.1)
[2019-06-27 07:07] LABS: FOLLICLE STIMULATING HORMONE 4.7 mIU/mL (1.5-12.4); LUTEINIZING HORMONE 3.8 mIU/mL (1.7-8.6); PROGESTERONE 0.2 ng/mL (0.0-0.5); PROLACTIN 10.9 ng/mL (4.0-15.2)
== END | disposition home or self-care (01) ==
LOC: LAB 09:07
PROVIDERS: Nurse Practitioner Family
DX: R53.83 Other fatigue (principal)

== ENCOUNTER → 2020-07-06 | Outpatient (CLI) | payer OTHER | END | disposition home or self-care (01) | LOC: CT 01:07 | PROVIDERS: ATTEND Nurse Practitioner Family | DX: K42.9 Umbilical hernia without obstruction or gangrene (principal) ==

== ENCOUNTER 2021-09-04 08:58 | Inpatient (IN) | payer OTHER ==
[~2021-09-04] VITALS: Ht 165.1 cm; Wt 99.5 kg
[2021-09-04] VITALS (10 sets, daily range): BP systolic 157–186; BP diastolic 84–94
[2021-09-04] MEDS ORDERED: ATORVASTATIN CA10 M1 PO (09:08)
[2021-09-04] MEDS ORDERED: LOSARTAN POTASS50 M1 PO (09:08)
[2021-09-04] MEDS ORDERED: METHOTREXATE S2.5 M1 PO (09:09)
[2021-09-04 11:22] LABS: BASO % 0.3 % (0.0-1.0); EOS % 0.1 % (1.0-4.0); HEMATOCRIT 44.4 % (42.0-52.0); LYMPH # 0.7 10*3/uL (1.3-4.4); LYMPH % 7.8 % (27.0-41.0); MEAN CELL VOLUME 86.2 fl (80.0-94.0); MEAN CORPUSCULAR HGB 30.1 pg (27.0-31.0); MEAN CORPUSCULAR HGB CONC 34.9 g/dl (33.0-37.0); MEAN PLATELET VOLUME 9.5 fl (9.6-12.3); MONO # 0.7 10*3/uL (0.1-1.0); MONO % 7.4 % (3.0-9.0); NEUT # 7.6 10*3/uL (2.3-7.9); NEUT % 84.2 % (47.0-73.0); PLATELET COUNT AUTOMATED 276 10*3/uL (130-400); RED BLOOD COUNT 5.15 10*6/uL (4.50-5.90); RED CELL DISTRI WIDTH 12.1 % (0-14.5)
[2021-09-04 11:46] LABS: ALKALINE PHOSPHATASE 91 U/L (45-117); BUN 14 mg/dl (7-24); CHLORIDE 100 mmol/L (98-107); CREATININE 1.19 mg/dL (0.70-1.30); LIPASE 88 U/L (73-393); POTASSIUM 3.3 mmol/L (3.5-5.1); SGOT/AST 19 IU/L (3-35); SGPT/ALT 18 U/L (12-78); SODIUM 136 mmol/L (136-145); TOTAL PROTEIN 7.6 gm/dL (6.4-8.2)
[2021-09-04 12:48] LABS: BILIRUBIN Negative (Negative); BLOOD Negative (Negative); CLARITY Cloudy (Clear); COLOR Yellow (Yellow); GLUCOSE Negative (Negative); KETONE Trace (Negative); LEUKO ESTERASE Trace (Negative); NITRITE Negative (Negative)
[2021-09-04 12:57] LABS: PH 8.5 (4.5-8.0)
[2021-09-04 13:12] LABS: BACTERIA 2+
[2021-09-04] MEDS ORDERED: ZINC10 M4 PO (14:57)
[2021-09-04] MEDS ORDERED: HYDR12.5C PO (14:59)
[2021-09-05] VITALS: BP 172/71
[2021-09-05 04:00] VITALS: BP 151/78
[2021-09-05 06:26] LABS: BASO % 0.1 % (0.0-1.0); HEMATOCRIT 41.3 % (42.0-52.0); LYMPH # 0.5 10*3/uL (1.3-4.4); LYMPH % 4.9 % (27.0-41.0); MEAN CELL VOLUME 88.2 fl (80.0-94.0); MEAN CORPUSCULAR HGB 30.1 pg (27.0-31.0); MEAN CORPUSCULAR HGB CONC 34.1 g/dl (33.0-37.0); MEAN PLATELET VOLUME 9.9 fl (9.6-12.3); MONO # 0.8 10*3/uL (0.1-1.0); MONO % 8.6 % (3.0-9.0); NEUT # 8.3 10*3/uL (2.3-7.9); NEUT % 86.2 % (47.0-73.0); PLATELET COUNT AUTOMATED 236 10*3/uL (130-400); RED BLOOD COUNT 4.68 10*6/uL (4.50-5.90); RED CELL DISTRI WIDTH 12.3 % (0-14.5); WHITE BLOOD COUNT 9.7 10*3/uL (4.8-10.8)
[2021-09-05 06:44] LABS: ACT PARTIAL THROMBO TIME 28.1 SECONDS (20.0-32.1); INTERNATIONAL NORM RATIO 1.1 (2.0-3.5)
[2021-09-05 06:51] LABS: CHLORIDE 105 mmol/L (98-107); POTASSIUM 3.3 mmol/L (3.5-5.1); SODIUM 140 mmol/L (136-145); TOTAL PROTEIN 6.9 gm/dL (6.4-8.2)
[2021-09-05 06:57] LABS: ALKALINE PHOSPHATASE 67 U/L (45-117); BUN 14 mg/dl (7-24); CHOLESTEROL 103 mg/dL (<200); CREATININE 1.17 mg/dL (0.70-1.30); FREE T4 1.54 ng/dl (0.76-1.46); LDL CHOLESTEROL 48 mg/dL (9-159); SGOT/AST 13 IU/L (3-35); SGPT/ALT 16 U/L (12-78); THYROID STIM HORMONE (HS) 0.479 uIU/ml (0.358-4.75); TRIGLYCERIDES 54 mg/dl (<150)
[2021-09-05 08:00] VITALS: BP 155/75
[2021-09-05 12:00] VITALS: BP 152/66
[2021-09-05 15:39] VITALS: BP 181/87
[2021-09-05 20:00] VITALS: BP 147/63
[2021-09-06] VITALS: BP 167/77
[2021-09-06 06:20] LABS: BUN 17 mg/dl (7-24); CHLORIDE 106 mmol/L (98-107); CREATININE 1.02 mg/dL (0.70-1.30); POTASSIUM 3.3 mmol/L (3.5-5.1); SODIUM 137 mmol/L (136-145)
[2021-09-06 06:50] LABS: BASO % 0.4 % (0.0-1.0); EOS % 0.3 % (1.0-4.0); HEMATOCRIT 40.2 % (42.0-52.0); LYMPH # 0.8 10*3/uL (1.3-4.4); LYMPH % 9.1 % (27.0-41.0); MEAN CORPUSCULAR HGB 30.7 pg (27.0-31.0); MEAN CORPUSCULAR HGB CONC 33.1 g/dl (33.0-37.0); MEAN PLATELET VOLUME 10.3 fl (9.6-12.3); MONO # 0.7 10*3/uL (0.1-1.0); MONO % 7.9 % (3.0-9.0); NEUT # 7.4 10*3/uL (2.3-7.9); PLATELET COUNT AUTOMATED 207 10*3/uL (130-400); RED BLOOD COUNT 4.33 10*6/uL (4.50-5.90); RED CELL DISTRI WIDTH 12.4 % (0-14.5)
[2021-09-06 07:04] LABS: MEAN CELL VOLUME 92.8 fl (80.0-94.0)
[2021-09-06 08:00] VITALS: BP 170/90
[2021-09-06 12:00] VITALS: BP 164/68
[2021-09-06 16:00] VITALS: BP 142/69
[2021-09-06 20:00] VITALS: BP 108/71
[2021-09-07] VITALS: BP 141/74
[2021-09-07 08:00] VITALS: BP 172/82
[2021-09-07 12:00] VITALS: BP 170/78
[2021-09-07 16:00] VITALS: BP 120/54
[2021-09-07 20:00] VITALS: BP 155/93
[2021-09-08] VITALS: BP 173/76
[2021-09-08 06:10] LABS: BASO # 0.1 10*3/uL (0.0-0.1); BASO % 0.7 % (0.0-1.0); EOS # 0.2 10*3/uL (0.0-0.4); EOS % 2.9 % (1.0-4.0); HEMATOCRIT 34.5 % (42.0-52.0); LYMPH # 1.1 10*3/uL (1.3-4.4); LYMPH % 16.3 % (27.0-41.0); MEAN CELL VOLUME 88.7 fl (80.0-94.0); MEAN CORPUSCULAR HGB 30.3 pg (27.0-31.0); MEAN CORPUSCULAR HGB CONC 34.2 g/dl (33.0-37.0); MEAN PLATELET VOLUME 9.8 fl (9.6-12.3); MONO # 0.6 10*3/uL (0.1-1.0); MONO % 8.7 % (3.0-9.0); NEUT # 4.9 10*3/uL (2.3-7.9); NEUT % 71.1 % (47.0-73.0); PLATELET COUNT AUTOMATED 205 10*3/uL (130-400); RED BLOOD COUNT 3.89 10*6/uL (4.50-5.90); WHITE BLOOD COUNT 6.9 10*3/uL (4.8-10.8)
[2021-09-08 06:34] LABS: BUN 11 mg/dl (7-24); CHLORIDE 106 mmol/L (98-107); CREATININE 0.94 mg/dL (0.70-1.30); POTASSIUM 3.5 mmol/L (3.5-5.1); SODIUM 139 mmol/L (136-145)
[2021-09-08 08:00] VITALS: BP 158/89
[2021-09-08] MEDS ORDERED: HYDROCODONE-AC1 EAC1 PO (11:12)
[2021-09-08] MEDS ORDERED: DULCOLAX STOOL100 MG PO (11:12)
[2021-09-08] MEDS ORDERED: ZOFRAN4 MG PO (11:12)
== END 2021-09-08 11:50 | disposition home or self-care (01) | DRG 330 ==
LOC: ED 08:58 → 4E 14:30 → EDHOLD 14:30 → 4E 14:57
PROVIDERS: Internal Medicine; Nurse Practitioner Family; Registered Nurse; ADMIT Student in an Organized Health Care Education/Training Program; ATTEND Student in an Organized Health Care Education/Training Program
PROC: 0DB80ZZ Excision of Small Intestine, Open Approach (ICD-10-PCS; principal; 2021-09-04)
PROC: 0DNU0ZZ Release Omentum, Open Approach (ICD-10-PCS; 2021-09-04)
PROC: 0DN80ZZ Release Small Intestine, Open Approach (ICD-10-PCS; 2021-09-04)
PROC: 0WQF0ZZ Repair Abdominal Wall, Open Approach (ICD-10-PCS; 2021-09-04)
PROC: 0WJP4ZZ Inspection of Gastrointestinal Tract, Percutaneous Endoscopic Approach (ICD-10-PCS; 2021-09-04)
PROC: 3E0T3BZ Introduction of Anesthetic Agent into Peripheral Nerves and Plexi, Percutaneous Approach (ICD-10-PCS; 2021-09-04)
PROC: 3E0T33Z Introduction of Anti-inflammatory into Peripheral Nerves and Plexi, Percutaneous Approach (ICD-10-PCS; 2021-09-04)
PROC: 0D9670Z Drainage of Stomach with Drainage Device, Via Natural or Artificial Opening (ICD-10-PCS; 2021-09-04)
DX: K43.0 Incisional hernia with obstruction, without gangrene (principal); K56.609 Unspecified intestinal obstruction, unspecified as to partial versus complete obstruction; E44.0 Moderate protein-calorie malnutrition; L03.311 Cellulitis of abdominal wall; K46.0 Unspecified abdominal hernia with obstruction, without gangrene; K80.20 Calculus of gallbladder without cholecystitis without obstruction; R14.0 Abdominal distension (gaseous); E87.6 Hypokalemia; R73.9 Hyperglycemia, unspecified; E80.6 Other disorders of bilirubin metabolism; E78.5 Hyperlipidemia, unspecified; M06.9 Rheumatoid arthritis, unspecified; I10 Essential (primary) hypertension; M10.9 Gout, unspecified; N40.0 Benign prostatic hyperplasia without lower urinary tract symptoms; E66.01 Morbid (severe) obesity due to excess calories; E53.8 Deficiency of other specified B group vitamins; Z88.8 Allergy status to other drugs, medicaments and biological substances; Z79.899 Other long term (current) drug therapy; Z87.891 Personal history of nicotine dependence; Z82.49 Family history of ischemic heart disease and other diseases of the circulatory system; Z79.82 Long term (current) use of aspirin; Z68.36 Body mass index [BMI] 36.0-36.9, adult

== ENCOUNTER → 2022-07-09 | Day surgery (SDC) | payer OTHER ==
[~2022-07-09] VITALS: Ht 165.1 cm; Wt 99.8 kg
[~2022-07-09] MED LIST changes: +ATORVASTATIN CA10 M1 PO; +DULCOLAX STOOL100 MG PO; +HYDR12.5C PO; +HYDROCODONE-AC1 EAC1 PO; +LOSARTAN POTASS50 M1 PO; +METHOTREXATE S2.5 M1 PO; +PROTONIX40 MG PO; +ZINC10 M4 PO; +ZOFRAN4 MG PO
[2022-07-09 07:03] VITALS: BP 177/89
[2022-07-09 07:52] VITALS: BP 106/47
[2022-07-09 08:07] VITALS: BP 110/67
[2022-07-09 08:22] VITALS: BP 104/68
== END | disposition home or self-care (01) ==
LOC: SDC 07-05 08:45
PROVIDERS: ATTEND Surgery
DX: Z12.11 Encounter for screening for malignant neoplasm of colon (principal); D12.3 Benign neoplasm of transverse colon; K29.50 Unspecified chronic gastritis without bleeding; K21.9 Gastro-esophageal reflux disease without esophagitis; I10 Essential (primary) hypertension; E78.5 Hyperlipidemia, unspecified; M06.9 Rheumatoid arthritis, unspecified; Z87.891 Personal history of nicotine dependence; Z79.899 Other long term (current) drug therapy

== ENCOUNTER → 2024-12-16 | Outpatient (CLI) | payer OTHER ==
[~2024-12-16] MED LIST changes: +ATORVASTATIN CA40 M1 PO; +BARIUM SULFATE 98% 340 GM BOT PO ONE; +CLOPIDOGREL75 MG PO
== END | disposition home or self-care (01) ==
LOC: RAD/SH 02:13
PROVIDERS: ATTEND Internal Medicine
DX: R13.10 Dysphagia, unspecified (principal)